=== PATIENT | male | born 1975 | race Caucasian/White ===

== ENCOUNTER 2024-03-22 03:01 | Day surgery (SDC) | payer BC, SELFPAY ==
[2024-02-23 15:06] VITALS: BMI 35.2
[2024-03-22 06:17] VITALS: BP 151/92; PULSE 87; RESP 16; TEMP 36.1; O2SAT 100; BMI 34.2
[2024-03-22] MEDS: LACTATED RINGERS 1,000 ML 150 ML IV CONT (06:30)
[2024-03-22 06:36] LABS: Glucose Point of Care 121 mg/dl (65-105)
--- NOTE | 2024-03-22 07:15 | WPDANESEPPF ---
Anes - Initial Pre Proc Eval Procedure: Operation Date: 03/22/24 07:30 Proposed Procedures p Screening Colonoscopy - Nakul Ortiz MD Date/Time: 03/22/24 07:15 Surgeon: Nakul Ortiz MD Pre Op Diagnosis: neoplasm screening Patient Data Age: 49 Gender: M Height: 1.78 m Weight: 108.3 kg Last Vital Signs Temp 97 F L 03/22/24 06:17 Pulse 87 03/22/24 06:17 Resp 16 03/22/24 06:17 BP 151/92 H 03/22/24 06:17 Pulse Ox 100 03/22/24 06:17 O2 Del Method Room Air 03/22/24 06:17 Allergies Allergy/AdvReac Type Severity Reaction Status Date / Time No Known Allergies Allergy Verified 03/22/24 06:15 Home Medications Medication Instructions Recorded Confirmed Type amlodipine 5 mg tablet 5 mg PO DAILY #90 tabs 11/13/23 03/22/24 Rx atorvastatin 10 mg tablet 10 mg PO DAILY #90 tabs 11/13/23 03/22/24 Rx levothyroxine 150 mcg tablet 150 mcg PO DAILY #90 tabs 11/13/23 03/22/24 Rx losartan 100 mg tablet 100 mg PO DAILY #90 tabs 11/13/23 03/22/24 Rx metformin 1,000 mg tablet 1,000 mg PO BID #180 tabs 11/13/23 03/22/24 Rx multivitamin 1 tablet PO DAILY 11/13/23 03/22/24 History omeprazole 20 mg delayed 20 mg PO DAILY 11/13/23 03/22/24 History release,disintegrating tablet triamterene 37.5 1 cap PO DAILY #90 caps 11/13/23 03/22/24 Rx mg-hydrochlorothiazide 25 mg capsule Laboratory Tests 03/22/24 06:22 POC Capillary Glucose 121 H mg/dl (65-105) Patient hx anesthesia problems: none Family hx anesthesia problems: none Results Review: All pre-operative results and documents have been reviewed as part of the pre-operative evaluation. [facility] Past Medical History Medical History (Updated 11/13/23 @ 11:22 by Mary Alaniz NP) Colon cancer screening Diabetes mellitus GERD (gastroesophageal reflux disease) HTN (hypertension) Hyperlipidemia Hypothyroid NAFL (nonalcoholic fatty liver) Seasonal allergies Surgical History Surgical History Hx of cholecystectomy 2010 Family History Family History Mother Hypertension Social History Social History Smoking status: Never smoker Alcohol intake: never Substance use: never Substance use type: does not use Do You Feel Safe in your Home?: Yes Lack of Transportation: No Lack of Food: Never True Current Housing: I Have Housing Concerned About Future Housing: No Difficulty Paying Gas/Electric Bills: No Difficulty Paying for Meds: No Currently Unemployed: No Education: Bachelor's Degree Difficulty w/ Childcare or Family Care: No Living arrangements: with family Gender identity (if verbalized by the patient): Male Spiritual care concerns: No Anes - Eval Final PreProcedure Day of Procedure 03/22/24 07:15 Patient weight: obese Heart: regular rate and rhythm Lungs: clear to auscultation Airway: Mallampati scale class II Neurological: alert and oriented Last oral intake: >/= 8 hours ASA classification: III Emergent: no Anesthetic plan: proceed Anesthesia type and monitoring: general GIVS and standard monitoring Results Review: All pre-operative results and documents have been reviewed as part of the pre-operative evaluation. Informed Consent: The patient's anesthetic plan and its attendant risks and benefits were discussed with the patient/family/POA. Questions were solicited and answers provided to the satisfaction of the patient/family/POA.
--- NOTE | 2024-03-22 07:34 | PM.HPGS ---
History of Present Illness History of Present Illness Consent: Risks, benefits, and alternatives have been discussed and questions answered. Patient agrees to proceed with procedure. Chief complaint: neoplasm screening Narrative: Rafael Campos is a 49 year old male here for first screening colonoscopy Review of Systems Review of Systems: All systems reviewed & are unremarkable except as noted in HPI and below PMFSH Past Medical History Medical History (Updated 11/13/23 @ 11:22 by Mary Alaniz NP) Colon cancer screening Diabetes mellitus GERD (gastroesophageal reflux disease) HTN (hypertension) Hyperlipidemia Hypothyroid NAFL (nonalcoholic fatty liver) Seasonal allergies Surgical History Surgical History Hx of cholecystectomy 2010 Family History Family History Mother Hypertension Social History Social History Smoking status: Never smoker Alcohol intake: never Substance use: never Substance use type: does not use Do You Feel Safe in your Home?: Yes Lack of Transportation: No Lack of Food: Never True Current Housing: I Have Housing Concerned About Future Housing: No Difficulty Paying Gas/Electric Bills: No Difficulty Paying for Meds: No Currently Unemployed: No Education: Bachelor's Degree Difficulty w/ Childcare or Family Care: No Living arrangements: with family Gender identity (if verbalized by the patient): Male Spiritual care concerns: No Meds Home Medications and Allergies Home Medications Medication Instructions Recorded Confirmed Type amlodipine 5 mg tablet 5 mg PO DAILY #90 tabs 11/13/23 03/22/24 Rx atorvastatin 10 mg tablet 10 mg PO DAILY #90 tabs 11/13/23 03/22/24 Rx levothyroxine 150 mcg tablet 150 mcg PO DAILY #90 tabs 11/13/23 03/22/24 Rx losartan 100 mg tablet 100 mg PO DAILY #90 tabs 11/13/23 03/22/24 Rx metformin 1,000 mg tablet 1,000 mg PO BID #180 tabs 11/13/23 03/22/24 Rx multivitamin 1 tablet PO DAILY 11/13/23 03/22/24 History omeprazole 20 mg delayed 20 mg PO DAILY 11/13/23 03/22/24 History release,disintegrating tablet triamterene 37.5 1 cap PO DAILY #90 caps 11/13/23 03/22/24 Rx mg-hydrochlorothiazide 25 mg capsule Allergies Allergy/AdvReac Type Severity Reaction Status Date / Time No Known Allergies Allergy Verified 03/22/24 06:15 Vital Signs Vital Signs - 24 hr 03/22/24 06:17 Temperature 97 F L Pulse Rate 87 Respiratory Rate 16 Blood Pressure 151/92 H Pulse Oximetry 100 Oxygen Delivery Room Air Exam Const: General: comfortable and no acute distress HENMT: Face/Nose/Sinus: Normal nares present Eyes: General: appearance normal, both eyes and all related structures Neck: Neck: no JVD Resp: Auscultation: clear to auscultation bilaterally Cardio: Rate: regular rate Rhythm: regular rhythm GI: Inspection: non-distended GI Palp: Yes Soft to palpation Skin: General skin exam: normal color Neuro: General: gait normal Speech: normal speech Extrem: General: normal to inspection Psych: Mental Status: mental status grossly normal Assessment and Plan Assessment and plan (1) Colon cancer screening: Code(s): Z12.11 - Encounter for screening for malignant neoplasm of colon Status: Acute Assessment and Plan: colonoscopy
[2024-03-22 07:56] VITALS: BP 112/72; PULSE 79; RESP 19; O2SAT 96
[2024-03-22 08:06] VITALS: BP 122/74; PULSE 80; RESP 16; O2SAT 97
[2024-03-22 08:16] VITALS: BP 134/95; PULSE 85; RESP 20; O2SAT 93
== END 2024-03-22 08:26 | disposition home or self-care (01) ==
PROVIDERS: PCP Nurse Practitioner Family; Referring Provider Nurse Practitioner Family; Visit Provider Internal Medicine Gastroenterology
PROC: 0DJD8ZZ Inspection of Lower Intestinal Tract, Via Natural or Artificial Opening Endoscopic (ICD-10-PCS; CPT 45378; principal; 2024-03-22 07:30)
DX: Z12.11 Encounter for screening for malignant neoplasm of colon (principal); D12.3 Benign neoplasm of transverse colon; K62.1 Rectal polyp; K64.8 Other hemorrhoids; E11.9 Type 2 diabetes mellitus without complications; K21.9 Gastro-esophageal reflux disease without esophagitis; I10 Essential (primary) hypertension; E78.5 Hyperlipidemia, unspecified; E03.9 Hypothyroidism, unspecified; E66.9 Obesity, unspecified; Z68.34 Body mass index [BMI] 34.0-34.9, adult; Z79.84 Long term (current) use of oral hypoglycemic drugs; Z90.49 Acquired absence of other specified parts of digestive tract
CPT/HCPCS: 45385; 82948; 88305; J2704; J7120